=== PATIENT | male | born 1985 | race Caucasian/White ===

== ENCOUNTER 2017-03-25 19:36 | Emergency (ER) | payer BC ==
[2017-03-25 19:50] VITALS: BP 138/89
--- NOTE | 2017-03-25 20:02 | UC ---
Skin Complaint HPI - HPI Summary HPI Summary: 32 YEAR OLD MALE PRESENTS WITH COMPLAINS OF RASH ON HIS BACK. - History of Current Complaint Chief Complaint: [facility] Time Seen by Provider: 03/25/17 19:52 Stated Complaint: RASH Onset/Duration: Sudden Onset Onset Severity: Moderate - Allergy/Home Medications Allergies/Adverse Reactions: Allergies Allergy/AdvReac Type Severity Reaction Status Date / Time No Known Allergies Allergy Verified 03/25/17 19:50 Home Medications: Home Medications Cholecalciferol CAP/TAB(NF) [Vitamin D3 CAP/TAB (NF)] 5,000 unit PO 03/25/17 [ History] Multiple Vitamins W/ Minerals [Multivitamin Adults] 1 tab PO DAILY 03/25/17 [ History Confirmed 03/25/17] [place]-3 Fatty Acids [Fish Oil] 03/25/17 [History] Review of Systems Constitutional: Negative Skin: Rash Eyes: Negative ENT: Negative Respiratory: Negative Cardiovascular: Negative Gastrointestinal: Negative Genitourinary: Negative Motor: Negative Neurovascular: Negative Musculoskeletal: Negative Neurological: Negative Psychological: Negative All Other Systems Reviewed And Are Negative: Yes PMH/Surg Hx/FS Hx/Imm Hx Previously Healthy: Yes Other History Of: Negative For: HIV, Hepatitis B, Hepatitis C - Surgical History Surgical History: None - Family History Known Family History: Positive: None - Social History Alcohol Use: Occasionally Substance Use Type: None Smoking Status (MU): Never Smoked Tobacco Physical Exam Triage Information Reviewed: Yes Vital Signs: Initial Vital Signs Temp 36.6 C 03/25/17 19:44 Pulse 60 03/25/17 19:44 Resp 16 03/25/17 19:44 BP 138/89 03/25/17 19:44 Pulse Ox 99 03/25/17 19:44 Vital Signs Reviewed: Yes Eye Exam: Normal ENT Exam: Normal Dental Exam: Normal Neck exam: Normal Respiratory Exam: Normal Cardiovascular Exam: Normal Abdominal Exam: Normal Musculoskeletal Exam: Normal Skin: Positive: rashes Course/Dx - Diagnoses Provider Diagnoses: RASH ON BACK Discharge - Discharge Plan Condition: Stable Disposition: HOME Prescriptions: Methylprednisolone [Medrol Dosepak 4 MG*] 4 mg PO .SEE JOY [employer]STRUCTION #21 tab Selenium Sulfide [Selsun Blue] 1 % EX WEEKLY #1 bottle Triamcinolone 0.1% CREAM (NF) [Kenalog 0.1% Cream (NF)] 1 applic TOPICAL BID PRN #90 gm PRN Reason: Itching Patient Education Materials: Acute Rash (ED), Pityriasis rosea (ED) Referrals: Sal Das MD [Primary Care Provider] -
== END 2017-03-25 20:15 | disposition home or self-care (01) ==
LOC: UCEAST 19:36
DX: R21 Rash and other nonspecific skin eruption (principal)
CPT/HCPCS: 99212; G0463

== ENCOUNTER 2017-04-10 19:29 | Emergency (ER) | payer BC ==
[2017-04-10 19:36] VITALS: BP 131/73
--- NOTE | 2017-04-18 17:15 | UC ---
Agatha Loja Thomas, scribed for Arleen Stevens DO on 04/10/17 at 2059 . Skin Complaint HPI - HPI Summary HPI Summary: The pt is a 32 y/o M presenting to [facility] c/o a rash on his back that began four months ago. The patient denies pain although he complains of pruritus to the rash. The patient was seen at [facility] on 03/25/[address] Kruger and he was prescribed methylprednisolone, selenium sulfide, and triamcinolone cream. The patient has been using his medications as directed. The treatments have improved the rash on the shoulder but not the back. The rash is aggravated by going to the sauna and humidity. Pt denies F/S/C, abd pain, N/V, tongue/lips/ throat swelling, or any other complaints. When the patient was a child, he had a similar rash that was successfully treated with an unspecified topical cream. - History of Current Complaint Chief Complaint: [facility] Time Seen by Provider: 04/10/17 20:43 Stated Complaint: RASH Hx Obtained From: Patient Onset/Duration: Lasting Weeks - onset four months ago, Still Present Timing: Constant Pain Intensity: 0 Pain Scale Used: 0-10 Numeric Location: Other - Back Character: Pruritus Aggravating Factor(s): Humidity, Other - Heat Alleviating Factor(s): Other - Treatments as described in HPI, somewhat Associated Signs & Symptoms: Positive: Negative - Allergy/Home Medications Allergies/Adverse Reactions: Allergies Allergy/AdvReac Type Severity Reaction Status Date / Time No Known Allergies Allergy Verified 04/10/17 19:36 Review of Systems Constitutional: Other - NEGATIVE: fever Skin: Rash - on back Is Patient Immunocompromised?: No All Other Systems Reviewed And Are Negative: Yes PMH/Surg Hx/FS Hx/Imm Hx Previously Healthy: Yes - NEGATIVE: DM, HTN Other History Of: Negative For: HIV, Hepatitis B, Hepatitis C - Surgical History Surgical History: None - Family History Known Family History: Positive: Hypertension, Diabetes - Social History Alcohol Use: Occasionally Substance Use Type: None Smoking Status (MU): Never Smoked Tobacco Physical Exam Triage Information Reviewed: Yes Appearance: Well-Appearing, No Pain Distress, Well-Nourished Vital Signs: Initial Vital Signs Temp 98.2 F 04/10/17 19:33 Pulse 76 10/14/17 19:33 Resp 18 04/10/17 19:33 BP 131/73 04/10/17 19:33 Pulse Ox 98 04/10/17 19:33 Vital Signs Reviewed: Yes Eyes: Positive: Conjunctiva Clear. Negative: Discharge ENT: Positive: Hearing grossly normal. Negative: Muffled/hoarse voice Neck exam: Normal Neck: Positive: Supple Respiratory: Positive: Lungs clear, Normal breath sounds, No respiratory distress, No accessory muscle use Cardiovascular: Positive: RRR, No Murmur Musculoskeletal Exam: Normal Neurological: Positive: Alert, Muscle Tone Normal Psychological Exam: Normal Psychological: Positive: Age Appropriate Behavior Skin: Positive: Other - He has a rash of multiple oval scaly lesions on his back. Otherwise, skin is warm, dry, and normal color. Course/Dx - Course Course Of Treatment: The pt is a 32 y/o M complaining of a rash on his back that began four months ago. He was encouraged to make an appointment with a primary care provider for further management of this rash. Medications reviewed this visit. High blood pressure noted. - Diagnoses Provider Diagnoses: pityriasis rosea, Elevated blood pressure without a diagnosis of hypertension. Discharge - Discharge Plan Condition: Stable Disposition: HOME Prescriptions: predniSONE TAB* [Deltasone TAB*] 40 mg PO DAILY #10 tab Patient Education Materials: Pityriasis rosea (ED), Dermatitis (ED) Referrals: [facility] PHYSICIAN REFERRAL [Outside] (FOLLOW UP IN 5-6 DAYS.) Additional Instructions: USUALLY PITYRIASIS ROSEA DOES NOT RESPOND TO MEDICATION. HOWEVER, YOU STATED THAT IT, EVEN TOUGH IT DID NOT RESOLVE COMPLETELY, IT SEEMED TO IMPROVE WITH THE ORAL STEROID YOU WERE TAKING. FOR THIS REASON YOU WOULD LIKE TO TRY ANOTHER COURSE OF STEROIDS TO SEE IF IT MIGHT GO AWAY COMPLETELY. SO WE HAVE SENT IN A COURSE OF PREDNISONE. WE WANT YOU TO FOLLOW UP AT THE END OF THIS COURSE TO SEE WHAT THE NEXT STEPS SHOULD BE. Use the [facility] Physician Referral Service to find a primary care provider and make an appointment. It is important to have this rash managed by the same physician over multiple visits. Your blood pressure was elevated at this visit. That does not mean you have hypertension, it is probably due to your current condition. Please follow up with your primary care provider. FOLLOW-UP CARE: IT IS IMPORTANT FOR YOU TO HAVE CONSISTENT FOLLOW UP. You should establish with a private physician for follow-up care IN 5-6 DAYS. If you are unable to get a timely appointment, or if you are worsening, call us or return for re-evaluation. An additional resource available to assist in finding the appropriate physician for your health care needs is the Physician Referral Center. You may contact them by calling [phone]. The documentation as recorded by the Agatha lakhani Thomas accurately reflects the service I personally performed and the decisions made by me, Arleen Stevens DO.
== END 2017-04-10 21:38 | disposition home or self-care (01) ==
LOC: UCEAST 19:29
DX: L42 Pityriasis rosea (principal); R03.0 Elevated blood-pressure reading, without diagnosis of hypertension
CPT/HCPCS: 99212; G0463

== ENCOUNTER 2020-07-29 09:49 | Inpatient (IN) ==
[2020-07-29] MEDS ORDERED: NS 0.9% 1000 ml BAG 1,000 ML IV ONE ×2 (10:12→10:30)
[2020-07-29] MEDS ORDERED: Ondansetron 4 mg VIAL 2 MG/ML 2 ml VIAL IV ONE (10:30)
[2020-07-29] MEDS ORDERED: Ondansetron 4 mg VIAL 2 MG/ML 2 ml VIAL ONE (10:31)
[2020-07-29 10:57] LABS: ABS Lymphocytes 0.9 10^3/ul (1.0-4.8); ABS Monocytes 1.5 10^3/ul (0-0.8); ABS Neutrophils 9.2 10^3/ul (1.5-7.7); Hematocrit 50 % (42-52); Hemoglobin 17.1 g/dL (14.0-18.0); Mean Corpuscular HGB Conc 35 g/dL (31-36); Mean Corpuscular Hemoglobin 32 pg (27-31); Mean Corpuscular Volume 94 fL (80-94); Mean Platelet Volume 8.6 fL (7.4-10.4); Platelet Count 179 10^3/uL (150-450); Red Blood Count 5.29 10^6 /uL (4.18-5.48); Red Cell Distribution Width 13 % (10-15); White Blood Count 11.6 10^3/uL (3.5-10.8)
[2020-07-29 11:13] LABS: ALT 87 U/L (7-52); AST 51 U/L (13-39); Albumin/Globulin Ratio 1.5 (1-3); Alkaline Phosphatase 73 U/L (34-104); Anion Gap 19 mmol/L (2-11); BUN/Creatinine Ratio 20.8 (8-20); Blood Urea Nitrogen 37 mg/dL (6-24); C Reactive Protein 68.26 mg/L (<8.01); CO2 Carbon Dioxide 24 mmol/L (22-32); Calcium 10.6 mg/dL (8.6-10.3); Chloride 89 mmol/L (101-111); EGFR African American 52.9 (>60); EGFR Non-African American 43.7 (>60); Globulin 3.4 g/dL (2-4); Glucose 141 mg/dL (70-100); Potassium 3.1 mmol/L (3.5-5.0); Sodium 132 mmol/L (135-145); Total Protein 8.4 g/dL (6.4-8.9)
[2020-07-29 11:15] LABS: Troponin I 0.01 ng/mL (<0.03)
[2020-07-29] MEDS ORDERED: Iodixanol (CONTRAST) 320 MG/ML 100 ML SDV IV ONE (11:18)
[2020-07-29 11:21] LABS: Alcohol, S < 10 mg/dL (<10)
[2020-07-29 11:46] LABS: Magnesium 1.8 mg/dL (1.9-2.7)
[2020-07-29 11:56] LABS: Lipase 771 U/L (11.0-82.0)
[2020-07-29] MEDS ORDERED: Lorazepam PYXIS KEY ONE (12:28)
[2020-07-29] MEDS ORDERED: Lorazepam PYXIS KEY PRN (12:28)
[2020-07-29] MEDS ORDERED: LORazepam 2 mg VIAL 1 ml IV PUSH ONE (12:28)
[2020-07-29] MEDS ORDERED: LORazepam 2 mg VIAL 1 ml ONE (12:29)
[2020-07-29] MEDS: KCL 10 MEQ/50 ML IVPREMIX 10 MEQ/50 ML BAG IV SCH ×2 (12:37→15:53)
[2020-07-29] MEDS ORDERED: Pantoprazole VIAL 40 MG VIAL IV SCH (15:00)
[2020-07-29] MEDS ORDERED: Potassium Chlor 20 meq TAB.ER PO ONE (15:27)
[2020-07-29] MEDS: Ondansetron 4 mg VIAL 2 MG/ML 2 ml VIAL IV PRN ×2 (15:56→22:21)
[2020-07-29] MEDS: NS 0.9% 1000 ml BAG 1,000 ML IV SCH (16:06)
[2020-07-30 01:13] LABS: Urine Appearance Clear; Urine Bilirubin Negative (Negative); Urine Blood 1+ (Negative); Urine Color Yellow; Urine Glucose Negative (Negative); Urine Ketones Trace (Negative); Urine Nitrite Negative (Negative); Urine Protein Negative (Negative); Urine Urobilinogen Negative (Negative)
[2020-07-30 02:53] LABS: Urine Bacteria 1+ (Absent); Urine Red Blood Cell Trace(0-2/hpf) (Absent); Urine White Blood Cell Trace(0-5/hpf) (Absent)
[2020-07-30] MEDS: NS 0.9% 1000 ml BAG 1,000 ML IV SCH ×2 (04:46→15:06)
[2020-07-30 05:58] LABS: BUN/Creatinine Ratio 19.8 (8-20); Calcium 9.2 mg/dL (8.6-10.3); EGFR African American 107.9 (>60); EGFR Non-African American 89.1 (>60); Potassium 3.5 mmol/L (3.5-5.0)
[2020-07-30] MEDS ORDERED: Influenza VAC *QUAD* 2020-21* 0.5 ML SYRINGE IM ONE (09:00)
[2020-07-31] MEDS: NS 0.9% 1000 ml BAG 1,000 ML IV SCH (02:31)
[2020-07-31 09:40] LABS: Hematocrit 40 % (42-52); Hemoglobin 13.9 g/dL (14.0-18.0); Mean Corpuscular HGB Conc 35 g/dL (31-36); Mean Corpuscular Hemoglobin 32 pg (27-31); Mean Corpuscular Volume 92 fL (80-94); Mean Platelet Volume 8.9 fL (7.4-10.4); Platelet Count 155 10^3/uL (150-450); Red Blood Count 4.28 10^6 /uL (4.18-5.48); Red Cell Distribution Width 13 % (10-15); White Blood Count 6.6 10^3/uL (3.5-10.8)
[2020-07-31 09:57] LABS: Albumin 3.9 g/dL (3.2-5.2); Albumin/Globulin Ratio 1.3 (1-3); BUN/Creatinine Ratio 9.5 (8-20); Calcium 9.4 mg/dL (8.6-10.3); EGFR African American 145.6 (>60); EGFR Non-African American 120.4 (>60); Globulin 2.9 g/dL (2-4); Total Bilirubin 1.7 mg/dL (0.2-1.0); Total Protein 6.8 g/dL (6.4-8.9)
[2020-07-31] MEDS: Potassium Chlor 20 meq TAB.ER PO SCH ×2 (11:27→15:55)
[2020-07-31] MEDS: hydrALAZINE 20 mg/ml 1 ML Vial IV IV SLOW PU PRN (15:56)
[2020-08-01] MEDS: hydrALAZINE 20 mg/ml 1 ML Vial IV IV SLOW PU PRN (11:30)
[2020-08-01 15:20] LABS: Urine Appearance Clear; Urine Bilirubin Negative (Negative); Urine Blood Negative (Negative); Urine Color Yellow; Urine Glucose Negative (Negative); Urine Ketones Negative (Negative); Urine Nitrite Negative (Negative); Urine Protein Negative (Negative); Urine Specific Gravity 1.006 (1.010-1.030); Urine Urobilinogen Positive (Negative)
[2020-08-01] MEDS: Ondansetron 4 mg VIAL 2 MG/ML 2 ml VIAL IV PRN (19:47)
[2020-08-02 00:20] LABS: Troponin I 0.06 ng/mL (<0.03)
[2020-08-02 04:29] LABS: Hematocrit 40 % (42-52); Mean Corpuscular HGB Conc 35 g/dL (31-36); Mean Corpuscular Hemoglobin 32 pg (27-31); Mean Corpuscular Volume 92 fL (80-94); Mean Platelet Volume 8.1 fL (7.4-10.4); Platelet Count 216 10^3/uL (150-450); Red Blood Count 4.39 10^6 /uL (4.18-5.48); Red Cell Distribution Width 13 % (10-15); White Blood Count 6.7 10^3/uL (3.5-10.8)
[2020-08-02 04:47] LABS: Albumin 3.9 g/dL (3.2-5.2); Albumin/Globulin Ratio 1.3 (1-3); BUN/Creatinine Ratio 11.1 (8-20); Calcium 10.4 mg/dL (8.6-10.3); EGFR African American 131.2 (>60); EGFR Non-African American 108.4 (>60); Total Bilirubin 1.1 mg/dL (0.2-1.0); Total Protein 6.9 g/dL (6.4-8.9)
[2020-08-02] MEDS ORDERED: Metoprolol Tartrate 5 mg VIAL 5 ml VIAL (1 mg/ml) IV ONE (06:37)
[2020-08-02] MEDS ORDERED: Lactated Ringers 500 ml BAG 500 ML IV SCH ×2 (07:00→10:18)
[2020-08-02] MEDS ORDERED: Magnesium Sulfate IV 1GM/100ML 1 GM/100 ML BAG IV ONE (08:00)
[2020-08-02] MEDS ORDERED: Potassium Chlor 20 meq TAB.ER PO ONE (08:00)
[2020-08-02 08:21] LABS: Magnesium 1.9 mg/dL (1.9-2.7)
[2020-08-02] MEDS ORDERED: Lactated Ringers 500 ml BAG 500 ML IV ONE (10:17)
[2020-08-02] MEDS ORDERED: Magnesium Hydroxide LIQ 30 ML UDC PO PRN (10:18)
[2020-08-02] MEDS ORDERED: Magnesium Hydroxide LIQ 30 ML UDC PO ONE (10:18)
[2020-08-02] MEDS: Ondansetron 4 mg VIAL 2 MG/ML 2 ml VIAL IV PRN (21:06)
[2020-08-03 05:55] LABS: ABS Basophils 0.1 10^3/ul (0-0.2); ABS Eosinophils 0.2 10^3/ul (0-0.6); ABS Lymphocytes 1.2 10^3/ul (1.0-4.8); ABS Monocytes 1.3 10^3/ul (0-0.8); ABS Neutrophils 3.5 10^3/ul (1.5-7.7); Eosinophil % 2.7 %; Hematocrit 41 % (42-52); Mean Corpuscular HGB Conc 34 g/dL (31-36); Mean Corpuscular Hemoglobin 32 pg (27-31); Mean Corpuscular Volume 93 fL (80-94); Mean Platelet Volume 8.8 fL (7.4-10.4); Platelet Count 241 10^3/uL (150-450); Red Blood Count 4.41 10^6 /uL (4.18-5.48); Red Cell Distribution Width 13 % (10-15); White Blood Count 6.2 10^3/uL (3.5-10.8)
[2020-08-03 06:12] LABS: Calcium 10.1 mg/dL (8.6-10.3); EGFR African American 129.4 (>60); EGFR Non-African American 106.9 (>60); Potassium 3.5 mmol/L (3.5-5.0)
[2020-08-03] MEDS ORDERED: Lactulose 30 ml UDC PO ONE (07:42)
[2020-08-03] MEDS ORDERED: Iohexol 350 (CONTRAST) 500 ML MDV IV ONE (10:42)
[2020-08-03] MEDS: Ondansetron 4 mg VIAL 2 MG/ML 2 ml VIAL IV PRN (21:18)
[2020-08-04 11:33] VITALS: BP 134/99
== END 2020-08-04 11:30 | disposition home or self-care (01) | DRG 282 ==
LOC: ED 09:49 → MED 14:14
PROVIDERS: ADMIT Hospitalist; ATTEND Internal Medicine